=== PATIENT | female | born 2000 ===

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

== ENCOUNTER 2024-04-26 10:39 | Emergency (ER) | payer OTHER, SELFPAY ==
--- NOTE | ~2024-04-26 | US_ITS ---
EXAMINATION: US PELVIS CLINICAL INFORMATION: Left lower quadrant and pelvic pain COMPARISON: 12/15/[address] TECHNIQUE: Ultrasound of the pelvis is performed using both transabdominal and transvaginal transducers along with Doppler. Transvaginal imaging is performed due to inadequate visualization transabdominally. FINDINGS: Uterus: The uterus is anteverted and measures 7.9 x 2.8 x 4.9. The double wall endometrial thickness is 7 mm. The uterus is smooth in contour and has normal myometrial echogenicity. No visible fibroid. Adnexa: Both ovaries are visualized. There is normal color flow to the adnexa. There is no ovarian torsion. There is no pelvic ascites or fluid collection. Right ovary measures 3.8 x 2.6 x 2.2 cm. Volume is 11.4 mL. Left ovary measures 5.7 x 3.5 x 4.5 cm. Volume is 47 mL. Complex 3.4 x 2.8 x 2.5 cm corpus luteum cyst is seen. Small amount of free pelvic fluid. US/US pelvic and transvaginal IMPRESSION: 1. 3.4 cm left corpus luteum cyst. 2. Small amount of free pelvic fluid. Electronically signed by: Trinity Sandoval MD 04/26/2024 02:04 PM BRAULIO
[2024-04-26 11:47] VITALS: BP 142/67; PULSE 67; RESP 16; TEMP 36.6; O2SAT 99; BMI 23.2
--- NOTE | 2024-04-26 12:05 | ED.GENADULT ---
HPI - General Adult General Chief complaint: Abdominal Pain Stated complaint: sharp abd pain Time Seen by Provider: 04/26/24 23:37 Source: patient and other (Significant other: Bem) Mode of arrival: ambulatory History of Present Illness ED Provider: Dr. Deejay Kaminski HPI narrative: 23-year-old female with no significant past medical or surgical history LMP 03/30/2024 who presents emergency department for evaluation of 2 weeks of lower abdominal pain worse in the last 2 days. She states that initially the pain felt like a gas pain and was intermittent. Over the last 2-3 days the pain has been constant but waxing and waning intensity. She points to her left pelvic area when asked to localize the pain. She states the pain today is 8/10 and it was 10/10 at its worst. Patient denied fever, chills, nausea. She did have occasional vomiting. She denied diarrhea. She denied frequency urgency or dysuria. She denied vaginal discharge. She states her last menstrual period on 03/30/2024 was normal. This is a 1st episode of this type of pain. Related Data Previous Rx's ?Medication ?Instructions ?Recorded cephalexin 500 mg capsule 500 mg PO QID 5 days #20 caps 12/15/21 polyethylene glycol 3350 17 17 g PO DAILY #119 grams 12/15/21 gram/dose oral powder (Miralax) Allergies Allergy/AdvReac Type Severity Reaction Status Date / Time No Known Allergies Allergy Verified 04/26/24 11:48 Review of Systems Review of Systems: Yes all other systems are reviewed and are negative [facility] Past Medical History [facility] Narrative: Social history: She denies tobacco and drug use. She occasionally drinks alcohol but has not had any alcohol to drink in over a month. Social History Social History Advance Directives: No Advance Directives Information Provided: No Do you have a plan to hurt others: No Plan Physical Exam ED Vital Signs: Vital Signs - 24 hr 04/26/24 11:47 04/26/24 21:37 04/26/24 23:25 Temperature 97.8 F 98.2 F 98.4 F Pulse Rate 67 122 H 77 Respiratory Rate 16 16 16 Blood Pressure 142/67 H 146/99 H 117/71 Pulse Oximetry 99 98 98 Oxygen Delivery Method Room Air Room Air Room Air BMI result Body Mass Index 23.2 Vital signs initially revealed an elevated blood pressure but repeat blood pressure was 117/71. Vital signs otherwise unremarkable. Exam: General: Awake, alert in no distress Head: Normocephalic, atraumatic EENT: PERRL, Lids normal, sclera normal, conjunctiva normal, nose normal , ears normal, throat without erythema or exudates Neck: Supple, no adenopathy Lung: breath sounds symmetric, no wheezing, rales or rhonchi Chest: symmetric movement, nontender Heart: regular rate and rhythm, normal S1, S2 no murmurs or rubs Abdomen: soft, mild periumbilical tenderness, mild to moderate left pelvic tenderness, nondistended, normal bowel sounds Back: no vertebral tenderness, no CVAT Extremities: no deformities, moves all extremities symmetrically Neuro: Awake, alert, oriented, normal speech, cranial nerves intact, moves all extremities symmetrically Psych: Pleasant, cooperative Course Course Course Narrative: This is a rapid medical exam performed by Farzana Jones NP: Additional HPI, ROS, PE not included below will be deferred to primary provider. Patient is a 23-year-old female presenting with complaint of LLQ abdominal and pelvis pain, worse with coughing, nausea without vomiting. Plan: labs, UA, u/s Medications Administered Discontinued Medications Generic Name Dose Route Start Last Admin Trade Name Freq PRN Reason Stop Dose Admin Acetaminophen 975 mg 04/26/24 21:40 04/26/24 21:42 Acetaminophen 325 Mg Tablet PO 04/26/24 21:41 975 mg ONCE ONE Administration Medical Decision Making Medical Decision Making [facility] Narrative: 23-year-old female with no significant past medical or surgical history LMP 03/30/2024 who presents emergency department for evaluation of 2 weeks of lower abdominal pain worse in the last 2 days. Patient's pain initially felt like a gas pain and is now more localized to the left lower quadrant/pelvic area and is 8/10 at the time my evaluation. Vital signs were unremarkable. Exam did reveal left pelvic tenderness otherwise unremarkable. Differential diagnosis: ?Includes but is not limited to pancreatitis, appendicitis, pelvic inflammatory disease, ovarian cyst, ovarian torsion, electrolyte abnormalities, anemia, related pain Course: 00:15 My interpretation patient's laboratory evaluation as follows: Urine test was negative. Urinalysis was negative. CBC and CMP were normal. Pelvic Duplex ultrasound revealed a 3.4 cm left corpus luteal cyst with a small amount of free fluid with no evidence for torsion at this time. This time I do not have a clear etiology for the patient's pain it is possible the patient may have an ovarian cyst that partially ruptured/leak causing her pain I did discuss this with her. Given the size of the corpus luteal cyst, the patient will need follow-up with our gynecology group for further evaluation and I did discuss this with her. Patient was advised to take ibuprofen 400 mg 3 times a day for the next 3-4 days then as needed 3 times a day for pain. She was also advised to take Tylenol for pain. She was given printed and verbal instructions and discharged home. Admission/Observation Consideration of admission/observation: Escalation of care including admission/observation considered Lab Data MDM Lab Attestation statement: I reviewed the patient's lab results. 04/26/24 12:21 04/26/24 12:21 Labs: Lab Results 04/26/24 Range/Units 12:21 WBC 7.0 (4.8-10.8) X10*3/uL RBC 4.18 L (4.20-5.50) X10*6/uL Hgb 12.5 (12.0-16.0) g/dl Hct 38.1 (37.0-47.0) % MCV 91.1 (80.0-98.0) fL MCH 29.9 (27.0-33.0) pg MCHC 32.8 (31.0-35.0) g/dl RDW 14.4 (11.0-16.0) % Plt Count 279 (160-400) X10*3/uL MPV 10.5 (9.4-12.3) fL Immature Gran % (Auto) 0.1 (0.0-0.4) % Neut % (Auto) 53.5 (45-73) % Lymph % (Auto) 35.8 (20-40) % [place] % (Auto) 8.3 (2-11) % Eos % (Auto) 1.6 (0-4) % Baso % (Auto) 0.7 (0-2) % Lymph # (Auto) 2.5 (1.2-4.9) X10*3/uL [place] # (Auto) 0.6 (0.1-1.2) X10*3/uL Eos # (Auto) 0.1 (0.0-0.4) X10*3/uL Baso # (Auto) 0.1 (0.0-0.2) X10*3/uL Abs Immat Gran (auto) 0.01 (0.00-0.03) X10*3/uL Absolute Neuts (auto) 3.8 (2.0-8.3) x10*3/uL Absolute Nucleated RBC 0.000 (0.0-0.012) X10*3/uL Nucleated RBC % (auto) 0.0 (0.0-0.2) /100WBC Sodium 139 (135-145) mmol/L Potassium 4.3 (3.3-5.1) mmol/L Chloride 108 (96-108) mmol/L Carbon Dioxide 23 (22-29) mmol/L Anion Gap 12 (12-20) BUN 10 (9-16) mg/dL Creatinine 0.72 (0.5-1.4) mg/dL Estim Creat Clear Calc 102.2 Estimated GFR > 60 Random Glucose 82 (60-115) mg/dL Calcium 11.1 H D (8.4-10.2) mg/dL Total Bilirubin 0.5 (0.0-1.0) mg/dL AST 26 (5-31) U/L ALT 17 (0-31) U/L Alkaline Phosphatase 48 (39-117) U/L Total Protein 7.4 (6.5-8.0) g/dL Albumin 4.3 (3.5-5.0) g/dL Urine Color Yellow Urine Appearance Clear Urine pH 5.5 (5.0-9.0) Ur Specific [place] >= 1.030 H (1.005-1.025) Urine Protein Negative (Neg-Trace) mg/dL Urine Glucose (UA) Negative (Negative) mg/dL Urine Ketones Negative (Negative) mg/dL Urine Blood Negative (Negative) Urine Nitrite Negative (Negative) Ur Leukocyte Esterase Negative (Negative) Urine Test NEGATIVE (NEGATIVE) Radiology Impression Discussion of test interpretation with radiology: I have reviewed the radiologist's reading. Radiologist Impression: US pelvic and transvaginal IMPRESSION: 1. 3.4 cm left corpus luteum cyst. 2. Small amount of free pelvic fluid. Electronically signed by: Trinity Sandoval MD 04/26/2024 02:04 PM EST RP Independent Historian Clinical information obtained from an independent historian. History obtained from or confirmed by: Other (Significant other) Discharge Plan Discharge Clinical Impression: Cyst of left ovary, Pelvic pain Patient Disposition: Home, Self-Care Instructions: Ovarian Cyst (ED) Additional Instructions: You had a complete blood count, comprehensive metabolic panel which were normal. Your urine test was negative. Your urinalysis was negative for urinary tract infection. The ultrasound revealed a 3.4 cm left ovarian cyst with some free fluid in your pelvis. At this time I believe that your pain may be related to this ovarian cyst in the ovarian cyst may be leaking which may be causing your pain. This is usually treated with pain medications and following the cyst with ultrasound. Ovarian cysts seldom require operations. Take ibuprofen 200 mg pills, 2 pills every 6 hours (3 times a day) for 4 days then every 6 hours as needed for pain . Take Tylenol (acetaminophen) 500 mg pills, 2 pills every 6 hours as needed for pain. Follow-up with our on-call candy cutter machine, Dr. Sanchez. Call his office tomorrow to make a follow-up appointment within 1-2 weeks. Please return to the emergency department if your symptoms get worse or if you develop any symptoms that are concerning to you. Please see the school note S pelvic and transvaginal IMPRESSION: 1. 3.4 cm left corpus luteum cyst. 2. Small amount of free pelvic fluid. Electronically signed by: Trinity Sandoval MD 04/26/2024 02:04 PM EST RP Prescriptions: No Action cephalexin 500 mg capsule 500 mg PO QID 5 Days Qty: 20 0RF polyethylene glycol 3350 [Miralax] 17 gram/dose powder 17 g PO DAILY Qty: 119 0RF Rx Instructions: Take 1 tbsp and a cup of water once a day for the next week Referrals: Eleazar Sanchez MD [Physician] - 2 weeks (Left pelvic pain, 3.4 cm left corpus luteum/ovarian cyst with small amount of free fluid in the pelvis.) Stand Alone Forms: Work/School Release Print Language: Bengali
[2024-04-26 12:30] LABS: MANUAL DIFF FLAG NO
[2024-04-26 12:33] LABS: Appearance Urine Clear; Color Urine Yellow; Glucose Urine UA Negative (Negative); Leukocyte Esterase Urine Negative (Negative); Nitrite Urine Negative (Negative); PH 5.5 (5.0-9.0); Specific Gravity - Urine >= 1.030 (1.005-1.025); Urine Blood Negative (Negative); Urine Ketones Negative (Negative); Urine Protein Negative (Neg-Trace)
[2024-04-26 12:35] LABS: Basophils Absolute Auto 0.1 X10*3/uL (0.0-0.2); Basophils Percent Auto 0.7 % (0-2); Eosinophils Absolute Auto 0.1 X10*3/uL (0.0-0.4); Eosinophils Percent Auto 1.6 % (0-4); Hematocrit 38.1 % (37.0-47.0); Hemoglobin 12.5 g/dl (12.0-16.0); Imm Gran Abs Auto 0.01 X10*3/uL (0.00-0.03); Imm Gran Pct Auto 0.1 % (0.0-0.4); Lymphocytes Absolute Auto 2.5 X10*3/uL (1.2-4.9); Lymphocytes Percent Auto 35.8 % (20-40); Mean Corpuscular HGB Conc 32.8 g/dl (31.0-35.0); Mean Corpuscular Hemoglobin 29.9 pg (27.0-33.0); Mean Corpuscular Volume 91.1 fL (80.0-98.0); Mean Platelet Volume 10.5 fL (9.4-12.3); Monocytes Absolute Auto 0.6 X10*3/uL (0.1-1.2); Monocytes Percent Auto 8.3 % (2-11); Neutrophils Absolute Auto 3.8 x10*3/uL (2.0-8.3); Neutrophils Percent Auto 53.5 % (45-73); Platelet Count 279 X10*3/uL (160-400); Red Blood Count 4.18 X10*6/uL (4.20-5.50); Red Cell Distribution Width 14.4 % (11.0-16.0); UPreg QC Valid YES; Urine Pregnancy NEGATIVE (NEGATIVE)
[2024-04-26 12:49] LABS: Alanine Aminotransferase 17 U/L (0-31); Albumin Level 4.3 g/dL (3.5-5.0); Alkaline Phosphatase 48 U/L (39-117); Anion Gap 12 (12-20); Aspartate Amino Transferase 26 U/L (5-31); Bilirubin Total 0.5 mg/dL (0.0-1.0); Blood Urea Nitrogen 10 mg/dL (9-16); Calcium 11.1 mg/dL (8.4-10.2); Carbon Dioxide 23 mmol/L (22-29); Chloride 108 mmol/L (96-108); Creatinine Clr Calc Pharmacy 102.2; Estimated Glomerular Filt Rate > 60; Glucose Random 82 mg/dL (60-115); Potassium 4.3 mmol/L (3.3-5.1); Sodium 139 mmol/L (135-145); Total Protein 7.4 g/dL (6.5-8.0)
[2024-04-26 21:37] VITALS: BP 146/99; PULSE 122; RESP 16; TEMP 36.8; O2SAT 98
[2024-04-26] MEDS: Acetaminophen 325 MG TABLET 975 MG PO (21:42)
[2024-04-26 23:25] VITALS: BP 117/71; PULSE 77; RESP 16; TEMP 36.9; O2SAT 98
[2024-04-27] MEDS: Ibuprofen 400 MG TABLET PO (00:20)
[2024-04-27 00:22] VITALS: BP 117/71; PULSE 77; RESP 16; TEMP 36.9; O2SAT 98
== END 2024-04-27 00:22 | disposition home or self-care (01) ==
PROVIDERS: Emergency Provider Emergency Medicine Emergency Medical Services
DX: N83.202 Unspecified ovarian cyst, left side (principal); R10.2 Pelvic and perineal pain; R10.30 Lower abdominal pain, unspecified
CPT/HCPCS: 36415; 76830; 76856; 80053; 81003; 81025; 85025; 99283; 99284

== ENCOUNTER 2024-05-03 10:39 | Outpatient (AMB) | payer OTHER, SELFPAY ==
[2024-05-03 10:44] VITALS: BP 102/64; BMI 23.3
--- NOTE | 2024-05-03 10:44 | MHC.OFFVIS ---
Vital Signs 05/03/24 10:44 Height 5 ft 3 in Weight 131 lb 6 oz BMI 23.3 BP 102/64 Blood Pressure Location Lt brachial Position Sitting Intake Visit Reasons: ER follow up, room 3 Intake Note: Still having intermittent pain, not as prominent as before. LLQ Inspector And Sorter Required: No Privacy Officer: Privacy Officer Present Allergies No Known Allergies Allergy (Verified 04/26/24 11:48) Is last menstrual period known: Yes Last menstrual period: 03/30/24 Post menopausal: No Patient : No HPI Comments Details: Patient is here today for a new patient consult and follow up ER visit on on 04/26/2024, reported left pelvic pain and was diagnosed with an 3.4 cm corpus luteum cyst. While at the ED, pain level was 8/10, and reports the pain was much better the following day. notably present with intimacy or if she presses on her abdominal region. She is not on control has stopped use due to history of emotional mood changes, anger. She occasionally uses condoms. LMP 03/30/2024, currently late for menses, UPT is negative today. Cycle history normally every 28 days lasting 5 days. She has not had a pelvic exam before and declines examination today. [facility] Medical History (Updated 05/03/24 @ 13:20 by Julisa Diamond CNM) Ovarian cyst Social History (Updated 05/03/24 @ 10:56 by Virginia Briscoe) Household Members: Family Alcohol intake: current Alcohol intake frequency: holidays/special occasions only Patient Tobacco Use Status: Never used Tobacco Female Reproductive History Menstrual Age of Menarche: 14 Duration of menses: 6-7 days Date of last menstrual period: 03/30/24 control method: none History of STI: No Review of Systems Const All systems reviewed & are unremarkable except as noted in HPI and below Endo Reports no additional complaints Physical Exam Vital Signs: Last Vital Signs BP 102/64 05/03/24 10:44 BMI result Body Mass Index 23.3 Const General: cooperative, healthy appearing and no acute distress Psych Appearance: well kempt Attitude: cooperative Thought process: Normal thought process present Results Reviewed Results Reviewed: [address] [address] Ultrasound Report Signed Patient: Shahid Perdue MR#: [id number] : 2000 Acct:[id number] Age/Sex: 23 / F ADM Date: 04/26/24 Loc: HO.ED Attending Dr: Ordering Physician: Salome Jones NP Date of Service: 04/26/24 Procedure(s): US pelvic and transvaginal Accession Number(s): [id number] cc: REFUGIO DOMÍNGUEZ MD; Salome Jones NP~ EXAMINATION: US PELVIS CLINICAL INFORMATION: Left lower quadrant and pelvic pain COMPARISON: 12/15/[address] TECHNIQUE: Ultrasound of the pelvis is performed using both transabdominal and transvaginal transducers along with Doppler. Transvaginal imaging is performed due to inadequate visualization transabdominally. FINDINGS: Uterus: The uterus is anteverted and measures 7.9 x 2.8 x 4.9. The double wall endometrial thickness is 7 mm. The uterus is smooth in contour and has normal myometrial echogenicity. No visible fibroid. Adnexa: Both ovaries are visualized. There is normal color flow to the adnexa. There is no ovarian torsion. There is no pelvic ascites or fluid collection. Right ovary measures 3.8 x 2.6 x 2.2 cm. Volume is 11.4 mL. Left ovary measures 5.7 x 3.5 x 4.5 cm. Volume is 47 mL. Complex 3.4 x 2.8 x 2.5 cm corpus luteum cyst is seen. Small amount of free pelvic fluid. US/US pelvic and transvaginal IMPRESSION: 1. 3.4 cm left corpus luteum cyst. 2. Small amount of free pelvic fluid. Electronically signed by: Trinity Sandoval MD 04/26/2024 02:04 PM [facility] Dictated By: Trinity Sandoval MD Signed By: <Electronically signed by Trinity Sandoval MD in OV> 04/26/24 1404 DD/ 1313 TD/TT: 04/26/[address] Sales Associate: Assessment & Plan Assessment & Plan (1) Ovarian cyst: Code(s): N83.209 - Unspecified ovarian cyst, unspecified side Category: Medical Qualifiers: Laterality: unspecified laterality Qualified Code(s): N83.209 - Unspecified ovarian cyst, unspecified side Plan Discussed: Complex ovarian cyst corpus luteum cyst. Plan repeat pelvic ultrasound to follow up. Advised to call if there is any increase in pelvic pain, if pain is severe go right to the emergency room for immediate well evaluation. OTC comfort measures. Use of condoms consistently. Pelvic rest if indicated. Consider folic acid, vitamins or multivitamins for the benefit of prevention of neural tube defects if open to . Ultrasound ordered, follow up test results in person. Schedule curriculum development coordinator annual exam. All of her questions and concerns were addressed to the best of my ability and shared decision making. She is agreeable to the plan of care. This note is constructed using voice recognition software. While every effort has been made to ensure accuracy, care partner errors may have been included. Orders: Orders US pelvic and transvaginal 06/20/24 N83.209 - Unspecified ovarian cyst, unspecified side AMB HCG Urine Test Today N83.209 - Unspecified ovarian cyst, unspecified side, Z32.02 - Encounter for test, result negative Coding Level of Care Code New Pt Level 3 (71232) Diagnoses Cyst of ovary, unspecified laterality N83.209 Laterality: unspecified laterality
== END 2024-05-03 11:30 | disposition home or self-care (01) ==
LOC: HO.HWS 10:39
PROVIDERS: Visit Provider Advanced Practice Midwife
DX: N83.209 Unspecified ovarian cyst, unspecified side (principal)
CPT/HCPCS: 99203

== ENCOUNTER → 2024-05-03 10:39 | Outpatient (BNVA) | payer OTHER, SELFPAY | PROVIDERS: Visit Provider Advanced Practice Midwife | DX: N83.202 Unspecified ovarian cyst, left side (principal); Z32.02 Encounter for pregnancy test, result negative | CPT/HCPCS: 99202 ==

== ENCOUNTER 2024-06-22 11:01 | Outpatient (REF) | payer OTHER, SELFPAY ==
--- NOTE | ~2024-06-22 | US_ITS ---
CLINICAL HISTORY: N83.209 - Unspecified ovarian cyst, unspecified side US pelvis transvaginal Comparison: 06/22/2024 Findings: Transvaginal scanning performed. Anteverted uterus is 7.0 cm length. Normal myometrium. No endometrial lesion, 9.0 mm thickness. Right ovary 5.6 x 4.5 x 4.4 cm. Left ovary 4.2 x 1.5 x 2.5 cm. Normal color Doppler of both ovaries. There is a thin-walled heterogeneous right ovarian avascular 4.6 x 4.4 x 3.5 cm cyst, possibly hemorrhagic. Minimal free fluid. IMPRESSION: 1. Possible hemorrhagic right ovarian cyst. Consider short-term follow-up pelvic sonography in 4-6 weeks. This document has been electronically signed by: Zack Britt MD on 06/23/2024 18:14:23
== END 2024-06-22 11:02 | disposition home or self-care (01) ==
LOC: HO.US 11:01
PROVIDERS: Visit Provider Advanced Practice Midwife
DX: N83.209 Unspecified ovarian cyst, unspecified side (principal)
CPT/HCPCS: 76830; 76856

== ENCOUNTER → 2024-06-22 11:06 | Outpatient (BNV) | payer OTHER, SELFPAY | PROVIDERS: Visit Provider Specialist | DX: N83.201 Unspecified ovarian cyst, right side (principal) | CPT/HCPCS: 76830 ==

== ENCOUNTER 2025-01-03 07:54 | Outpatient (AMB) | payer OTHER, SELFPAY ==
--- OUTSIDE RECORDS SUMMARY | 2025-01-03 07:57 | XMS_ITS | Data Portability ---
Author Organization [facility] Address [address] [place] [id number] Care Team Providers Care Mac Artist Name Role Phone MARGRET DESAI Primary Care Provider Assessment No assessment recorded. Plan of Treatment Reminders Order Date Submit Date Provider Last Modified By Organization Details Last Modified Time Details Appointments None recorded. Lab rapid strep group A, throat 2022 023 skealy2 [facility], [address] [place] [address], [id number], 14:11:15 streptococc us group A, culture, throat 2022 023 BANGOR [facility], [address] [place] [address], [place], [address], 08:06:57 Referral None recorded. Procedures None recorded. Surgeries None recorded. Imaging None recorded. Medication Orders None recorded. Patient TargetsNo targets recorded. Patient Instructions Encounter Date Encounter Id Patient Instructions Last Modified By Organization Details Last Modified Time 12/04/2022 [id number] sore throat: car e instructions [email or web address] Not available 12/04/2022 14:11:15 Reason for Referral None Reported. Results Created Date Observation Date Name Description Value Unit Range Abnormal Flag Note LastModifiedBy Organization Detail LastModifiedTime 12/05/19 23 12/07/2022 BETA STREP GP A CULTU RE beta strep gp A culture NEGATI VE Refer ence Range : Negat kelvin Not Available [facility] ([facility]) [address] [facility], [place], [address], 12/07/2022 08:06:57 12/05/1912/04/2022 rapid strep group A, throa t Unknown Analyte Normal = Negati ve Not Available [address], [address], 12/04/2022 13:36:38 12/05/19 23 12/04/2022 rapid strep group A, throa t Unknown Analyte negati ve Not Available [address], [address], 12/04/2022 13:36:38 Result Notes None recorded. Problems No Known Problems Medical Equipment None Reported. Allergies No known drug allergies Medications Name Sig Start Date Stop Date Status Note LastModified by Organization Details LastModified Time amoxicillin 875 mg tablet 12/04 completed Not Available Not Available Not Available cephalexin 500 mg capsule TAKE 1 CAPSULE BY MOUTH FOUR TIMES DAILY FOR 5 DAYS 12/04 completed Not Available Not Available Not Available sertraline 25 mg tablet active Not Available Not Available Not Available polyethylen e glycol 3350 17 gram/dose oral powder MIX 17 GRAMS WITH 8 OUNCES OF WATER AND DRINK DAILY 12/04 completed Not Available Not Available Not Available Vienva 0.1 mg-20 mcg tablet Take 1 tablet every day by oral route. active Not Available Not Available No t Available Flowflex COVID-19 Antigen Home Test kit USE DIRECTED 12/04 completed Not Available Not Available Not Available Vitals Date Recorded Body height Body mass index (BMI) [Percentile] Per age and sex Body mass index (BMI) Body weight Respiratory rate Oxygen saturation Oxygen saturation in Arterial blood by Pulse oximetry Heart rate Body temperature Systolic And Diastolic Provider Name and Address Organization Details Last Updated DateTime 3 161.29 cm 51 % 21.8 kg/m2 83746.0 5 g 18 /min 96 % 96 % 123 /min 98.9 [degF] 116/77 mm[Hg] Edilia BUSTAMANTE - [facility] 3 13:39:15 Social History Question Answer Notes LastModified by Organization D etails LastModified Time Have You Recently Traveled Abroad? No Information not available 12/04/2022 Sex: Unknown Functional Status Question Answer Note LastModified by Organizat ion Details LastModified Time Do you use any illicit or recreational drugs? No Information not available 12/04/2022 Do you or have you ever used any other forms of tobacco or nicotine? No Information not available 12/04/2022 What is your level of alcohol consumption? None Information not available 12/04/2022 Mental Status None recorded. Family History Relationship Description Onset Age of this Age Resolved Age Notes LastModified by Organization Details LastModified Time Father No current problems or disability [email or web address] Not available 12/04 13:37:52 Mother No current problems or disability [email or web address] Not available 12/04 13:37:52 Medical History No medical history recorded. Gynecological History Statement/Question Response Date of LMP 11/20/2022 Is there any chance of ? No Obstetrics History GPAL:G 0 P 0 0 0 0 Immunizations Vaccine Type Date Status Note Provider Nam e and Address Organization Details Recorded Time HPV9 8 completed Edilia Monfette null, [place] - [facility] 12/04/2022 13:36:59 Influenza, MDCK, quadrivalent, PF 0 completed Edilia Monfette null, [place] - [facility] 12/04/2022 13:36:59 COVID-19, mRNA, LNP-S, PF, 30 mcg/0.3 mL dose 1 completed Edilia Monfette null, [place] - [facility] 12/04/2022 13:36:59 COVID-19, mRNA, LNP-S, PF, 30 mcg/0.3 mL dose 1 completed Edilia Monfette null, [place] - [facility] 12/04/2022 13:36:59 Hep A, adult 2 completed Edilia Monfette null, [place] - [facility] 12/04/2022 13:36:59 Hep A, ped/adol, 2 dose 1 completed Edilia Monfette null, [place] - [facility] 12/04/2022 13:36:59 meningococcal MCV4P 0 completed Edilia Kramer null, [place] - [facility] 12/04/2022 13:36:59 Influenza, split virus, quadrivalent, PF 2 completed Edilia Kramer null, [place] - [facility] 12/04/2022 13:36:59 Influenza, split virus, quadrivalent, PF 1 completed Edilia Kramer null, [place] - [facility] 12/04/2022 13:37:00 Past Encounters Encounter ID Performer Location Encounter Start Date Encounter Closed Date Diagnosis/Indication Diagnosis SNOMED-CT Code Diagnosis ICD10 Code Diagnosis Note [id number] [facility] [address] [address] 06/30/2021 17:23:09 06/30/2021 18:52:37 [id number] Ronit Bennett [place] [address] [address] 12/04/2022 12:49:11 12/04/2022 14:38:54 Viral pharyngitis 9716760 J02.8 Use over the counter medication s for your sore throat. Basic lozenges (cough drops) or lozenges with an anesthetic (numbing agent) can be used as needed for quick results; look for the active ingredient , benzocaine , for numbing lozenges (like Cepacol Extra or Chlorasept ic Max).Sore throat pain can also be reduced by taking regular doses of acetaminop hen (tylenol) or ibuprofen (Advil). Please consult our office promptly if you develop any of the following symptoms: 1. A fever of at least 101 F or 38.4 C2. Throat pain that is severe or does not start to improve within 5 to 7 days Call for an ambulance or go to the emergency room if you:1. Have trouble breathing2 . Cannot control your saliva (drooling) due to difficulty swallowing 3. Have swelling of the neck or tongue4. Cannot move your neck or have trouble opening your mouth Health Concerns Section Related Observation LastModified by Organization Detai ls LastModified Time None Recorded Concern Status LastModified by Organization Details LastModified Time None Recorded Advance Directives Directive None Recorded Payers Insurance Date Sequence Insurance Name Policy Number Policy Mcdonald Covered Member ID Mcdonadl Member ID Guarantor Name 12/04/2022 1 [facility] [id number] Shahid Perdue [id number] Shahid Perdue 12/04/2022 1 [facility] TYPE I (HMO) [id number] Shahid Perdue [id number] Shahid Perdue Notes Date Note Type Note Provider Name and Address Organization Details Recorded Time 12/04/2022 text/html Sore throatRepor anjelica bypatient.Location: hroat Severity:moderate Quality:sharp; hurts to swallow Onset/Timin days Associated Symptoms:no cough; no sputum production; no shortness of breath; no wheezing; no sinus pain; no vomiting; no nausea; No hoarseness Ronit Bennett [facility] [address] [facility] [place], [address], [place] - [facility] 12/04/2022 18:30:49 OBGyn Episode No OBEpisode recorded.
--- OUTSIDE RECORDS SUMMARY | 2025-01-03 07:57 | XMS_ITS | Encounter Summary ---
Author Organization [facility] Address [address] [place] [address] Phone Care Team Providers Care Training And Quality Manager Name Role Phone Nikky Stein MD Primary Care Provider [phone] Encounter Details Date Type Department Care Team (Late st Contact Info) Description 05/03/2010 Nurse Only [address] [address] Social History Tobacco Use Types Packs/Day Years Used Date Smoking Tobacco: Never Assessed Comments Unknown Sex and Gender Information Value Date Recorded Sex Assigned at Not on file Legal Sex Female 5:09 PM EST Gender Identity Female 06/29/2020 3:16 PM EST Sexual Orientation Not on file documented as of this encounter Nursing Notes * UNKNOWN, HISTORICAL - 05/03/2010 4:08 PM EST Shahid Perdue. 2000 NURSE NOTE/VERBAL ORDERS Office/Outpatient Visit Visit Date: May 03, 2010 04:08 pm Provider: Kathy Marshall LPN (Human Geography Instructor: Penny Parr MD) Location: [facility]. ECTIVE: CC: She is here for the Flu Clinic. HPI: No known chronic health conditions. Fever or illness is not present today. No trouble breathing or hives after eating eggs She has not had a reaction to the flu vaccine or other immunization. Flu vaccine VIS was given today.(interim 01/22/10) There were no questions or concerns voiced at today's visit. Allergies: Last Reviewed on 03/21/2010 5:19:48 PM by Val Venegas No Known Drug Allergies. Current Medications: Albuterol HFA 90mcg/1actuation Oral Inhaler Inhale 2 puff(s) by mouth q 4 to 6 hr OBJECTIVE: Exams: GENERAL APPEARANCE: Alert, active, looks well, mood appropriate ASSESSMENT: V04.81 Flu Clinic ORDERS: Procedures Ordered: Influenza virus vaccine, split virus, preservative free, > 3 years, for intramuscular use Immunization administration (includes percutaneous, intradermal, subcutaneous or intramuscular injec PLAN: Flu Clinic Influenza vaccine > 3 yr (Preservative Free) given No contraindications noted for flu vaccines. Tolerated well, left office in good condition. Orders: Influenza virus vaccine, split virus, preservative free, > 3 years, for intramuscular use Immunization administration (includes percutaneous, intradermal, subcutaneous or intramuscular injec CHARGE CAPTURE: Primary Diagnosis: V0481 Flu Clinic Orders: [id number] Influenza virus vaccine, split virus, preservative free, > 3 years, for intramuscular use [id number] Immunization administration (includes percutaneous, intradermal, subcutaneous or intramuscular injec documented in this encounter Plan of Treatment Not on file documented as of this encounter Visit Diagnoses Not on filedocumented in this encounter Care Teams Training And Quality Manager Relationship Specialty Start Date End Date Nikky Stein MD [address] [place] [address] PCP - General Pediatrics 07/31/20 03/18/23 documented as of this encounter
[2025-01-03 08:04] VITALS: BP 118/80; PULSE 63; TEMP 36.2; O2SAT 99; BMI 22.7
--- NOTE | 2025-01-03 08:04 | MHC.PC.OV ---
Vital Signs 01/03/25 08:04 Height 5 ft 3 in Weight 128 lb 2 oz BMI 22.7 BP 118/80 Blood Pressure Location Lt brachial Position Sitting Pulse 63 Pulse Source Pulse Oximeter Temp 97.1 F Temp Source Temporal Artery Scan Pulse Oximetry (%) 99 Oxygen Delivery Method Room Air Intake Visit Reasons: office visit,[employer] Allergies No Known Allergies Allergy (Verified 01/03/25 08:08) Medication List - Last Reviewed 01/03/25 by Danielle Benitez CMA norethindrone-e.estradiol-iron 1 mg-10 mcg (24)/10 mcg (2) (Lo Loestrin Fe) 1 tab PO DAILY Tobacco use date assessed: 01/03/25 Dental Screening Dental Screen Date: 01/03/25 Did you have a dental visit in the last 12 months?: No Did you have a dental problem in the last 6 months where you did not have access to dental care?: No Was dental information given to patient?: Patient has dentist HPI office visit,[employer] HPI Details 24-year-old female coming to the office with the 1st time. Presenting for a wellness visit and management of depression and anxiety. Depression and anxiety have been ongoing issues, with a history of medication use, specifically sertraline, which was discontinued due to side effects such as agitation and emotional numbness. The patient expressed interest in trying a different SSRI, specifically escitalopram, due to previous adverse effects with sertraline. A referral for counseling was agreed upon to address mental health concerns. The patient has a history of an ovarian cyst on the right side, which was identified during an emergency room visit due to significant pain. The patient reports knee pain, particularly when bent for extended periods, a condition involving knee tightness and muscular stiffness. eye doctor: [facility] pap smear: [place] [facility] [place] [facility] Medical History Ovarian cyst Surgical History No pertinent past surgical history Family History Mother Hypertension Multiple sclerosis Social History Household Members: Family Housing: House Alcohol intake: current Alcohol intake frequency: holidays/special occasions only Patient Tobacco Use Status: Never used Tobacco e-Cigarette/Vaping Use: Never Used Substance Use Type: Marijuana service: No Current occupational status: employed Current occupation: [employer] - [employer] Cognitive needs: No Hearing needs: No Vision needs: Yes Female Reproductive History Menstrual Age of Menarche: 14 control method: pills Total pregnancies: 1 Ab induced: 1 History of abnormal pap smear: No History of abnormal mammogram: No Questionnaire PHQ-9 Over the last 2 weeks, how often have you been bothered by any of the following problems? 1. Little interest or pleasure in doing things: more than half the days 2. Feeling down, depressed, or hopeless: several days 3. Trouble falling or staying asleep, or sleeping too much: nearly every day 4. Feeling tired or having little energy: nearly every day 5. Poor appetite or overeating: not at all 6. Feeling bad about yourself - or that you are a failure or have let yourself or your family down: several days 7. Trouble concentrating on things, such as reading the newspaper or watching television: not at all 8. Moving or speaking so slowly that other people could have noticed. Or the opposite - being so fidgety or restless that you have been moving around a lot more than usual: not at all 9. Thoughts that you would be better off or of hurting yourself in some way: not at all Total score: 10 Depression Screening Interpretation: Positive Depression Screening Follow-up: Existing condition and New Medication prescribed Depression Screening Done: Yes 11933 - PHQ-9 Billing: Yes Source: Developed by Drs. Dinesh Fleming, Odalys Sainz, Jose Apodaca and colleagues, with an educational angie from [employer]. Thrive Questionnaire Date Thrive assessed: 12/27/24 I am a: Patient What is your living situation today?: I have a steady place to live Within the past 12 months, did the food you bought not last and you didn't have the money to get more?: Never true Within the past 12 months, did you worry whether your food would run out before you got money to buy more?: Never true Do you have trouble paying for medicines?: No Do you have trouble getting transportation to medical appointments?: No Do you have trouble paying your heating and electricity bill?: No Do you have trouble taking care of your child, family member or friend?: No Do you have trouble with day-to-day activities such as bathing, preparing meals, shopping, managing finances, etc.?: No Are you currently unemployed and looking for a job?: No Are you interested in more education?: Yes THRIVE Score: 0 AUDIT C Alcohol Use Questionnaire (AUDIT-C) 1. How often do you have a drink containing alcohol?: Monthly or less 2. How many drinks containing alcohol do you have on a typical day when you are drinking?: 1 or 2 3. How often do you have six or more drinks on one occasion?: Less than monthly Total Score: 2 DALIA-7 AMB Questionnaire DALIA-7 Date DALIA - 7 assessed: 01/03/25 Feeling nervous, anxious, or on edge: 1 = Several days Not being able to stop or control worryin = Several days Worrying too much about different things: 1 = Several days Trouble relaxin = More than half the days Being so restless that it is hard to sit still: 0 = Not at all Becoming easily annoyed or irritable: 1 = Several days Feeling afraid as if something awful might happen: 0 = Not at all Total DALIA-7 score (0-4 normal; 5-9 mild; 10-14 moderate; 15-21 severe): 6 Source: Developed by Drs. Dinesh Fleming, Odalys Sainz, Jose Apodaca and colleagues, with an educational angie from [employer]. DALIA-7 Assessment Billing DALIA-7 Assessment Tool: DALIA-7 Assessment 29849 Review of Systems Const Denies body aches, Denies chills, Denies fever(s), Denies headache(s) and Denies poor appetite Eyes Reports no additional complaints and Reports requires corrective lenses ENT Reports Normal hearing present, Denies dysphagia, Denies dizziness, Denies headache(s) and Denies odynophagia Card Denies chest pain, Denies syncope, Denies edema, Denies irregular heart rhythm, Denies lightheadedness and Denies dyspnea Resp Denies cough and Denies dyspnea GI Denies abdominal pain, Denies constipation, Denies dysphagia, Denies diarrhea, Denies nausea, Denies odynophagia and Denies vomiting Reports no additional complaints Musc Reports no additional complaints and Denies abnormal gait Skin/Breast Reports system reviewed and no additional complaints, except as documented Neuro Reports Normal hearing present, Denies abnormal gait, Denies dizziness, Denies syncope and Denies headache(s) Psych Reports no additional complaints Physical exam (Primary Care) Vital Signs: Last Vital Signs Temp 97.1 F 01/03/25 08:04 Pulse 63 01/03/25 08:04 BP 118/80 01/03/25 08:04 Pulse Ox 99 01/03/25 08:04 Oxygen Delivery Method Room Air 01/03/25 08:04 BMI result Body Mass Index 22.7 Tobacco/Smoking Status: Tobacco use Status Tobacco use date assessed 01/03/25 01/03/25 08:08 Patient Tobacco Use Status Never used Tobacco 01/03/25 08:08 e-Cigarette/Vaping Use Never Used 01/03/25 08:08 PHQ-9: PHQ-9 Score PHQ-9: Total score 10 01/03/25 08:11 Depression Screening Interpretation: Positive Depression Screening Follow-up: Existing condition and New Medication prescribed Thrive Assessment: Date of Thrive Assessment Date Thrive assessed 12/27/24 01/03/25 08:08 Const General: cooperative, healthy appearing, comfortable and no acute distress Orientation/consciousness: patient oriented x3 HENMT Head: Yes normocephalic Ears: hearing grossly normal bilaterally General nose exam: Normal external nose present Face and sinus: Yes normal facial exam and Yes sinuses nontender Mouth: Normal oral and palatal mucosa present and tongue normal Throat: Yes posterior oropharynx normal Eyes General: appearance normal, both eyes and all related structures Conjunctivae: conjunctivae normal Pupils: Equal, round and reactive pupils present EOM: EOMs intact bilaterally and No Nystagmus present Neck Neck: Yes full ROM and Yes no lymphadenopathy Chest Chest palpation & inspection: normal inspection of the chest Resp Effort & Inspection: normal respiratory effort Auscultation: clear to auscultation bilaterally, no crackles, no rales, no rhonchi and no wheezes Cardio Rate: regular rate Rhythm: regular rhythm Peripheral pulses: radial pulses present and dorsalis pedis present GI Inspection: Yes normal to inspection and No Abdominal wall edema Palpation (GI): Soft to palpation, not firm and nontender Auscultation: normal bowel sounds Rectal Exam - Female: deferred General: Yes no CVA tenderness Back/Spine/Pelvis Back: no CVA tenderness Skin General skin exam: no rashes or lesions noted Neuro General: patient oriented x3 Cranial nerves: Yes Equal, round and reactive pupils present, Yes Normal hearing present and No Nystagmus present Gait exam (Neuro): Normal gait present Extrem Other: No tenderness to palpation over bilateral knees - intact strength and sensation of bilateral lower extremities General: Yes normal to inspection, Yes full ROM and No edema Psych Speech and movement: Normal speech and movement present Affect: normal affect Attitude: cooperative Insight: Good insight present (Psych) Judgement: Good judgement present (Psych) Coding Level of Care Code New Pt Prev Care 18-39yr([id number] Diagnoses Annual physical exam Z00.00 Cyst of ovary, unspecified laterality N83.209 Laterality: unspecified laterality Anxiety F41.9 Depression F32.A Right knee pain M25.561 Additional Codes DALIA-7 Assessment Billing - DALIA-7 Assessment Tool: DALIA-7 Assessment 35520 ([id number]) PHQ-9 - 03219 - PHQ-9 Billing: Yes ([id number]) Assessment & Plan Assessment & Plan (1) Annual physical exam: Code(s): Z00.00 - Encounter for general adult medical examination without abnormal findings Category: Medical Plan: Patient is up-to-date on all recommended routine screenings and vaccinations for her age. 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 I ordered for updated blood work. Healthy diet and regular exercise is encouraged. (2) Ovarian cyst: Code(s): N83.209 - Unspecified ovarian cyst, unspecified side Category: Medical Qualifiers: Laterality: unspecified laterality Qualified Code(s): N83.209 - Unspecified ovarian cyst, unspecified side Plan: Continue to follow [place] [facility] [place]. (3) Anxiety: Code(s): F41.9 - Anxiety disorder, unspecified Category: Medical Plan: For anxiety and depression patient was previously on sertraline however she had adverse reaction sits medication and would like to avoid the use of this medication going forward. Plan to start on Lexapro daily for management of anxiety and depression discussed side effects of this medication. Referral was also placed to counseling at patient request. Plan to follow up in 3 months or sooner as needed. (4) Depression: Code(s): F32.A - Depression, unspecified Category: Medical Plan: See above (5) Right knee pain: Code(s): M25.561 - Pain in right knee Category: Medical Plan: Patient complaining of intermittent right knee stiffness and pain primarily after periods of prolonged flexion of the knee. Recommend gentle stretching, massaging the knee and muscle surrounding the knee, heating pads and weight-bearing exercises. I did also recommend physical therapy if the patient should want this going forward referral can be placed. Knee exam normal no indication for x-ray at this time. Plan The patient will begin treatment with escitalopram at a starting dose of 5 mg daily, with the potential to increase to 10 mg if needed after four weeks, depending on her response and side effects. A 90-day supply has been prescribed to facilitate this adjustment. Additionally, a referral for counseling has been made to support her mental health management. The patient is advised to monitor for any side effects and to communicate any concerns via the patient portal or by contacting the office directly. For her knee pain, conservative management with stretching, physical therapy, and muscle strengthening exercises is recommended. The patient is advised to avoid high-impact activities that may exacerbate symptoms and to consider physical therapy if symptoms persist or worsen. Routine blood work has been ordered to screen for thyroid, kidney, liver function, electrolytes, and blood cell counts. These tests are not fasting and can be completed at the patient's convenience. Follow-up will be scheduled in three months to assess the effectiveness of the treatment plan and make any necessary adjustments. This note was constructed using voice recognition software. While every effort has been made to ensure accuracy and photogrammetric stereo compiler, still areas may have been included sometimes these areas may affect the content or meeting of the given symptoms. Total time spent caring for the patient today was 30 minutes. This includes time spent before the visit reviewing the chart, time spent during the visit, and time spent after the visit and documentation. Patient was informed and verbally consented to the use of an ambient scribe for clinic note documentation during this visit. Orders: Orders Comprehensive Met. Panel Today F41.9 - Anxiety disorder, unspecified, N83.209 - Unspecified ovarian cyst, unspecified side Vitamin B12 and Folate Today Z13.21 - Encounter for screening for nutritional disorder TSH reflex Free T4 Today F32.A - Depression, unspecified, Z00.00 - Encounter for general adult medical examination without abnormal findings Free T4 (Free Thyroxine) Today F32.A - Depression, unspecified, Z13.29 - Encounter for screening for other suspected endocrine disorder Complete Blood Count Auto Diff Today Z13.0 - Encounter for screening for diseases of the blood and blood-forming organs and certain disorders involving the immune mechanism Vitamin D 25-OH Total Today Z13.21 - Encounter for screening for nutritional disorder Referrals Counseling Referral F32.A - Depression, unspecified, F41.9 - Anxiety disorder, unspecified Medications: New escitalopram oxalate 5 mg PO DAILY 90 tabs 0RF
== END 2025-01-03 08:40 | disposition home or self-care (01) ==
LOC: HO.HMCH 07:55
DX: Z00.00 Encounter for general adult medical examination without abnormal findings (principal); N83.209 Unspecified ovarian cyst, unspecified side; F41.9 Anxiety disorder, unspecified; F32.A Depression, unspecified; M25.561 Pain in right knee

== ENCOUNTER → 2025-01-03 07:54 | Outpatient (BNVA) | payer OTHER, SELFPAY | DX: Z00.00 Encounter for general adult medical examination without abnormal findings (principal); F41.9 Anxiety disorder, unspecified; F32.A Depression, unspecified; N83.209 Unspecified ovarian cyst, unspecified side; M25.561 Pain in right knee; Z79.899 Other long term (current) drug therapy | CPT/HCPCS: 96127; 99385 ==

== ENCOUNTER 2025-04-11 15:21 | Outpatient (AMB) | payer OTHER, SELFPAY ==
[2025-04-11 15:26] VITALS: BP 112/70; PULSE 87; TEMP 36.3; O2SAT 99; BMI 23.5
--- NOTE | 2025-04-11 15:26 | A.OFFPC_ITS ---
Vital Signs 04/11/25 15:26 Height 5 ft 3 in Weight 132 lb 8 oz BMI 23.5 BP 112/70 Blood Pressure Location Lt brachial Position Sitting Pulse 87 Pulse Source Pulse Oximeter Temp 97.3 F Temp Source Temporal Artery Scan Pulse Oximetry (%) 99 Oxygen Delivery Method Room Air Intake Visit Reasons: f/u depression Allergies No Known Allergies Allergy (Verified 04/11/25 15:40) Medication List - Last Reconciled 04/11/25 by Ryann Benitez PA-C escitalopram oxalate 5 mg PO DAILY norethindrone-e.estradiol-iron 1 mg-10 mcg (24)/10 mcg (2) (Lo Loestrin Fe) 1 tab PO DAILY Tobacco use date assessed: 04/11/25 Dental Screening Dental Screen Date: 04/11/25 Did you have a dental visit in the last 12 months?: No Did you have a dental problem in the last 6 months where you did not have access to dental care?: No Was dental information given to patient?: Patient has dentist HPI f/u depression HPI Details 24 year old female with past medical of anxiety and depression last seen 12/2024 coming in for follow up. Presenting for a follow-up on her escitalopram medication and new-onset headaches. She has been taking escitalopram for three months for anxiety and d epression and feels the current dose is managing her symptoms well. For the past couple of weeks, she has experienced headaches more frequently than her baseline. She describes them as sometimes feeling like a migraine and located in the frontal region of her head, though she has not noticed if they favor one side. She reports developing some congestion and stuffiness since Thursday, which she feels is related to the change in weather. To manage these symptoms, she has been taking Sudafed since Thursday. [facility] Medical History Ovarian cyst Surgical History No pertinent past surgical history Family History Mother Hypertension Multiple sclerosis Social History Household Members: Family Housing: House Alcohol intake: current Alcohol intake frequency: holidays/special occasions only Patient Tobacco Use Status: Never used Tobacco Tobacco use type: Cigarette e-Cigarette/Vaping Use: Never Used Second Hand Smoke Exposure: No Substance Use Type: Marijuana service: No Current occupational status: employed Current occupation: [employer] Analyst - [employer] Cognitive needs: No Hearing needs: No Vision needs: Yes Female Reproductive History Menstrual Age of Menarche: 14 control method: pills Total pregnancies: 1 Ab induced: 1 History of abnormal pap smear: No History of abnormal mammogram: No Questionnaire PHQ-9 Over the last 2 weeks, how often have you been bothered by any of the following problems? 1. Little interest or pleasure in doing things: several days 2. Feeling down, depressed, or hopeless: not at all 3. Trouble falling or staying asleep, or sleeping too much: nearly every day 4. Feeling tired or having little energy: nearly every day 5. Poor appetite or overeating: not at all 6. Feeling bad about yourself - or that you are a failure or have let yourself or your family down: not at all 7. Trouble concentrating on things, such as reading the newspaper or watching television: not at all 8. Moving or speaking so slowly that other people could have noticed. Or the opposite - being so fidgety or restless that you have been moving around a lot more than usual: not at all 9. Thoughts that you would be better off or of hurting yourself in some way: not at all Total score: 7 Depression Screening Interpretation: Positive Depression Screening Follow-up: Existing condition and New Medication prescribed Depression Screening Done: Yes Source: Developed by Drs. Dinesh Fleming, Odalys Sainz, Jose Apodaca and colleagues, with an educational angie from [employer]. Thrive Questionnaire Date Thrive assessed: 12/27/24 I am a: Patient What is your living situation today?: I have a steady place to live Within the past 12 months, did the food you bought not last and you didn't have the money to get more?: Never true Within the past 12 months, did you worry whether your food would run out before you got money to buy more?: Never true Do you have trouble paying for medicines?: No Do you have trouble getting transportation to medical appointments?: No Do you have trouble paying your heating and electricity bill?: No Do you have trouble taking care of your child, family member or friend?: No Do you have trouble with day-to-day activities such as bathing, preparing meals, shopping, managing finances, etc.?: No Are you currently unemployed and looking for a job?: No Are you interested in more education?: Yes Please select the resources that you would like help with: None Currently or been in a relationship where the following occur: No concerns reported THRIVE Score: 0 AUDIT C Alcohol Use Questionnaire (AUDIT-C) 1. How often do you have a drink containing alcohol?: Monthly or less 2. How many drinks containing alcohol do you have on a typical day when you are drinking?: 1 or 2 3. How often do you have six or more drinks on one occasion?: Less than monthly Total Score: 2 DALIA-7 AMB Questionnaire DALIA-7 Date DALIA - 7 assessed: 01/03/25 Feeling nervous, anxious, or on edge: 1 = Several days Not being able to stop or control worryin = Several days Worrying too much about different things: 1 = Several days Trouble relaxin = More than half the days Being so restless that it is hard to sit still: 0 = Not at all Becoming easily annoyed or irritable: 1 = Several days Feeling afraid as if something awful might happen: 0 = Not at all Total DALIA-7 score (0-4 normal; 5-9 mild; 10-14 moderate; 15-21 severe): 6 Source: Developed by Drs. Dinesh Fleming, Odalys Sainz, Jose Apodaca and colleagues, with an educational angie from [employer]. Review of Systems Const Denies body aches, Denies chills, Denies fever(s), Reports headache(s) and Denies poor appetite Eyes Reports no additional complaints ENT Denies dysphagia, Denies dizziness, Reports headache(s), Denies odynophagia and Reports sinus pain Card Denies chest pain, Denies lightheadedness and Denies dyspnea Resp Denies dyspnea GI Denies abdominal pain, Denies constipation, Denies dysphagia, Denies nausea, Denies odynophagia and Denies vomiting Reports no additional complaints Musc Reports no additional complaints and Denies abnormal gait Skin/Breast Reports system reviewed and no additional complaints, except as documented Neuro Denies abnormal gait, Denies dizziness and Reports headache(s) Psych Reports no additional complaints Physical exam (Primary Care) Vital Signs: Last Vital Signs Temp 97.3 F 04/11/25 15:26 Pulse 87 04/11/25 15:26 BP 112/70 04/11/25 15:26 Pulse Ox 99 04/11/25 15:26 Oxygen Delivery Method Room Air 04/11/25 15:26 BMI result Body Mass Index 23.5 Tobacco/Smoking Status: Tobacco use Status Tobacco use date assessed 04/11/25 04/11/25 15:29 Patient Tobacco Use Status Never used Tobacco 04/11/25 15:27 Tobacco use type Cigarette 04/11/25 15:29 e-Cigarette/Vaping Use Never Used 04/11/25 15:27 PHQ-9: PHQ-9 Score PHQ-9: Total score 7 04/11/25 15:43 Depression Screening Interpretation: Positive Depression Screening Follow-up: Existing condition and New Medication prescribed Thrive Assessment: Date of Thrive Assessment Date Thrive assessed 12/27/24 04/11/25 15:27 Currently or been in a relationship where the following occur: No concerns reported Const General: cooperative, healthy appearing, comfortable and no acute distress Orientation/consciousness: patient oriented x3 HENMT Head: Yes normocephalic Ears: hearing grossly normal bilaterally General nose exam: Normal external nose present Eyes General: appearance normal, both eyes and all related structures Conjunctivae: conjunctivae normal Neck Neck: Yes full ROM and Yes no lymphadenopathy Resp Effort & Inspection: normal respiratory effort Auscultation: clear to auscultation bilaterally, no crackles, no rales, no rhonchi and no wheezes Cardio Rate: regular rate Rhythm: regular rhythm Skin General skin exam: no rashes or lesions noted Neuro General: patient oriented x3 Gait exam (Neuro): Normal gait present Extrem General: Yes normal to inspection, Yes full ROM and No edema Psych Affect: normal affect Attitude: cooperative Insight: Good insight present (Psych) Judgement: Good judgement present (Psych) Coding Level of Care Code Est Pt Level 3 (31934) Diagnoses Anxiety F41.9 Depression F32.A Headache R51.9 Assessment & Plan Assessment & Plan (1) Anxiety: Code(s): F41.9 - Anxiety disorder, unspecified Category: Medical Plan: The patient reports that her current dose of escitalopram is effective in managing her anxiety and depression. The plan is to continue the current dosage of escitalopram, with the contingency to reassess if her headaches persist, at which point an alternative medication may be considered. (2) Depression: Code(s): F32.A - Depression, unspecified Category: Medical Plan: See above (3) Headache: Code(s): R51.9 - Headache, unspecified Category: Medical Plan: The patient's recent onset of more frequent headaches, which began approximately three months after starting escitalopram, are unlikely to be a side effect of the medication. 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 The patient's use of Sudafed for the past three days was noted, with a caution against use beyond three days to prevent rebound headaches. An allergy medication and a nasal spray have been prescribed to help drain the sinuses, with instructions to use them daily for one week. The patient was advised she can use Tylenol or ibuprofen for pain relief. If the headaches do not improve within a week, the plan is to re-evaluate and consider tapering off escitalopram. Plan This note was constructed using voice recognition software. While every effort has been made to ensure accuracy and senior auditor, still areas may have been included sometimes these areas may affect the content or meeting of the given symptoms. Total time spent caring for the patient today was 30 minutes. This includes time spent before the visit reviewing the chart, time spent during the visit, and time spent after the visit and documentation. Patient was informed and verbally consented to the use of an ambient scribe for clinic note documentation during this visit. Medications: New fluticasone propionate 50 mcg/actuation (Flonase Allergy Relief) administer into each nostril 1 spray intranasal DAILY 16 grams 0RF cetirizine (All Day Allergy (cetirizine)) 10 mg PO DAILY 90 tabs 0RF Refilled escitalopram oxalate 5 mg PO DAILY 90 tabs 3RF
--- OUTSIDE RECORDS SUMMARY | 2025-04-11 19:46 | XMS_ITS | Encounter Summary ---
Author Organization [facility] Address [address] [place] [address] Phone Care Team Providers Care Clinical Nursing Assistant Name Role Phone Nikky Stein MD Primary Care Provider [phone] Reason for Visit * Reason Comments Med Refill Encounter Details Date Type Department Care Team (Late st Contact Info) Description 11/09/2020 Refill [place] [place] [facility], [facility] [address] [address] [place] [address] Nikky Stein MD [address] [facility] [address] [place] [address] Menstrual problem Social History Tobacco Use Types Packs/Day Years Used Date Smoking Tobacco: Never Comments:Never Smoker Hunger/Food Answer Date Recorded In the last 12 months, did y ou or your family ever eat less than you felt you should because there wasn't enough money for food? No 08/12/2019 Stable Housing Answer Date Recorded Are you worried that in the next 2 months you may not have stable housing? No 08/12/2019 Transportation Concerns Answer Date Rec orded In the last 12 months, have you or your family ever had to go without healthcare because you didn't have a way to get there? No 08/12/2019 Hazards in Home Answer Date Recorded Think about the place you li ve. Do you have problems with any of the following? Pests (mice or roaches), mold, no/not working smoke detectors, water leaks, no window guards. No 2019 Financing Utilities Answer Date Recorde d In the last 12 months, has t he electric, gas, oil, or water company threatened to shut off your services in your home? No 08/12/2019 Safety at Home Answer Date Recorded Are you or your family worried about feeling saf e in your home? No 08/12/2019 Outside Support Answer Date Recorded Do you feel that you need mo re support from other people or programs to help you care for yourself or your family? No 08/12/2019 Understanding Health Concerns Answer Da te Recorded Do you need help understandi ng your or your child's healthcare needs (diagnosis, medications, plan, etc.)? No 08/12/2019 Financing Health Concerns Answer Date R ecorded In the last 12 months, was t here a time when your child needed to see a doctor or get medications or supplies but could not because of cost? No 08/12/2019 Missing School or Work Answer Date Moy rded Did you or your child miss s chool or work because of a health problem that could have been avoided? No 08/12/2019 Comments Unknown Sex and Gender Information Value Date Recorded Sex Assigned at Not on file Legal Sex Female 5:09 PM EST Gender Identity Female 06/29/2020 3:16 PM EST Sexual Orientation Not on file documented as of this encounter Miscellaneous Notes * Telephone Encounter - Tahira Zamora - 11/09/2020 11:36 AM EDT Med review scheduled * Telephone Encounter - Marilin Morales MD - 11/09/2020 10:59 AM EDT Refill sent for [address] Stein had requested f/u at 3 months. Please schedule. * Telephone Encounter - Monet Jonas MA - 11/09/2020 9:59 AM EDT Last HME was 08/21/2020. PCP is out of the office, sending to covering provider. documented in this encounter Plan of Treatment Not on file documented as of this encounter Visit Diagnoses Diagnosis Menstrual problem documented in this encounter Care Teams Clinical Nursing Assistant Relationship Specialty Start Date End Date Nikky Stein MD [address] [place] [address] [address] [place] [address] PCP - General Pediatrics 07/31/20 03/18/23 documented as of this encounter
--- OUTSIDE RECORDS SUMMARY | 2025-04-11 19:46 | XMS_ITS | Encounter Summary ---
Author Organization [facility] Address [address] [place] [address] Phone Care Team Providers Care Floor Renovator Name Role Phone Nikky Stein MD Primary Care Provider [phone] Reason for Visit * Reason Comments Med Refill Encounter Details Date Type Department Care Team (Late st Contact Info) Description 03/04/2021 Refill [facility], [facility] [address] [address] [place] [address] Nikky Stein MD [address] [facility] [address] [place] [address] Anxiety and depression Social History Tobacco Use Types Packs/Day Years [...] on file documented as of this encounter Plan of Treatment Not on file documented as of this encounter Visit Diagnoses Diagnosis Anxiety and depression documented in this encounter Care Teams Floor Renovator Relationship Specialty Start Date End Date Nikky Stein MD [address] [place] [address] [address] [place] [address] PCP - General Pediatrics 07/31/20 03/18/23 documented as of this encounter
--- OUTSIDE RECORDS SUMMARY | 2025-04-11 19:46 | XMS_ITS | Data Portability ---
Author Organization [facility] Address [address] [place] [id number] Care Team Providers Care Pressing Machine Tender Name Role Phone MARGRET DESAI Primary Care Provider [phone] Assessment No assessment recorded. Plan of Treatment Reminders Order Date Submit Date Provider Last Modified By Organization Details Last Modified Time Details Appointments None recorded. Lab rapid strep group A, throat 2022 023 [facility]2 [facility], [address] [place] [address], [id number], 14:11:15 streptococc us group A, culture, throat [address] [place] [facility], [address] [place] [address], [place], [address], 08:06:57 Referral None recorded. Procedures None recorded. Surgeries None recorded. Imaging None recorded. Medication Orders None recorded. Patient TargetsNo targets recorded. Patient Instructions Encounter Date Encounter Id Patient Instructions Last Modified By Organization Details Last Modified Time 12/04/2022 [id number] sore throat: car e instructions [email or web address] Not available 12/04/2022 14:11:15 Reason for Referral None Reported. Results Created Date Observation Date Name Description Value Unit Range Abnormal Flag Note LastModifiedBy Organization Detail LastModifiedTime 12/05/19 23 12/07/2022 BETA STREP GP A CULTU RE beta strep gp A culture NEGATI VE Refer ence Range : Negat kelvin Not Available [facility] ([facility]) [address] [facility], [place], [address], 12/07/2022 08:06:57 12/05/1912/04/2022 rapid strep group A, throa t Unknown Analyte Normal = Negati ve Not Available [address], [address], 12/04/2022 13:36:38 12/05/19 23 12/04/2022 rapid strep group A, throa t Unknown Analyte negati ve Not Available [address], [address], 12/04/2022 13:36:38 Result Notes None recorded. Problems [...] sex Body mass index (BMI) Body weight Pain severity - 0-10 verbal numeric rating [Score] - Reported Respiratory rate Oxygen saturation Oxygen saturation in Arterial blood by Pulse oximetry Heart rate Body temperature Systolic And Diastolic Provider Name and Address Organization Details Last Updated DateTime 3 161.29 cm 51 % 21.8 kg/m2 96574.0 5 g 6 18 /min 96 % 96 % 123 /min 98.9 [degF] 116/77 mm[Hg] Edilia Kramer PA - [facility] 3 13:39:15 Social History [...] Diagnosis SNOMED-CT Code Diagnosis ICD10 Code Diagnosis IMO Codes Diagnosis Note [id number] [facility] [address] [address] 06/30/2021 17:23:09 06/30/2021 18:52:37 [id number] Ronit Bennett MD [address] [address] 12/04/2022 12:49:11 12/04/2022 14:38:54 Viral pharyngitis [id number] J02.8 Use over the counter medication s [...] Policy Number Policy Mcdonald Covered Member ID Mcdonald Member ID Guarantor Name 12/04/2022 1 [facility] [id number] Shahid Perdue [id number] Shahid Perdue 12/04/2022 1 [facility] DIRECT CONNECTORCARE TYPE I (HMO) [id number] Shahid Perdue [id number] Shahid Perdue Notes Date Note Type Note Provider Name and Address Organization Details Recorded Time 3 text/html Sore throatReported by PatientSore ThroatFor location, patient reportsthroat. For severity, patient reportsmoderate. For quality, patient reportssharpandhurts to swallow. For onset/timing, patient reports2 days. For associated symptoms, patient reportsno cough,no sputum production,no shortness of breath,no wheezing,no sinus pain,no vomiting,no nausea, andno hoarseness. Ronit Bennett MD [address] [place] [address] [place], [address], [place] - [facility] 12/04/2022 18:30:49 OBGyn Episode No OBEpisode recorded.
--- OUTSIDE RECORDS SUMMARY | 2025-04-11 19:46 | XMS_ITS | Encounter Summary ---
Author Organization [facility] Address [address] [place] [address] Phone Care Team Providers Care Applique Cutter Name Role Phone Nikky Stein MD Primary Care Provider [phone] Encounter Details Date Type Department Care Team (Late st Contact Info) Description 05/13/2012 Nurse Only [address] [id number] Social History Tobacco Use Types Packs/Day Years Used Date Smoking Tobacco: Never Assessed Comments Unknown Sex and Gender Information Value Date Recorded Sex Assigned at Not on file Legal Sex Female 5:09 PM EST Gender Identity Female 06/29/2020 3:16 PM EST Sexual Orientation Not on file documented as of this encounter Nursing Notes * UNKNOWN, HISTORICAL - 05/13/2012 5:02 PM EST Shahid Perdue. 2000 NURSE NOTE/VERBAL ORDERS Office/Outpatient Visit Visit Date: Pauline, May 13, 2012 05:02 pm Provider: Addis Cobb RN (Personnel Placement Specialist: Roshan Nation MD; Senior Receptionist: Addis Cobb RN) Location: [facility]. ECTIVE: CC: She is here for the Flu Clinic. Presents with mom HPI: No known chronic health conditions. Fever or illness is not present today. No trouble breathing or hives after eating eggs She has not had a reaction to the flu vaccine or other immunization. Flu vaccine VIS was given today.(interim 12/15/11) There were no questions or concerns voiced at today's visit. OBJECTIVE: Exams: GENERAL APPEARANCE: Alert, active, looks well, mood appropriate RESPIRATORY: Normal respiratory rate and pattern with no distress ASSESSMENT: V04.81 Flu Clinic ORDERS: Procedures Ordered: Influenza virus vaccine, split virus, preservative free, > 3 years, for intramuscular use (In-House) Immunization administration (includes percutaneous, intradermal, subcutaneous or intramuscular injec (In-House) PLAN: Flu Clinic Influenza vaccine > 3 yr (Preservative Free) given No contraindications noted for flu vaccines. Tolerated well, left office in good condition. Orders: Influenza virus vaccine, split virus, preservative free, > 3 years, for intramuscular use (In-House) Immunization administration (includes percutaneous, intradermal, subcutaneous or intramuscular injec (In-House) CHARGE CAPTURE: Primary Diagnosis: V04.81 Flu Clinic Orders: [id number] Influenza virus vaccine, split virus, preservative free, > 3 years, for intramuscular use (In-House) [id number] Immunization administration (includes percutaneous, intradermal, subcutaneous or intramuscular injec (In-House) documented in this encounter Plan of Treatment Not on file documented as of this encounter Visit Diagnoses Not on filedocumented in this encounter Care Teams Applique Cutter Relationship Specialty Start Date End Date Nikky Stein MD [address] [place] [address] [address] [place] [address] PCP - General Pediatrics 07/31/20 03/18/23 documented as of this encounter
--- OUTSIDE RECORDS SUMMARY | 2025-04-11 19:46 | XMS_ITS | Clinical Summary ---
Author Organization [facility] Address [address] [place] [address] Phone Care Team Providers Care [employer] Name Role Phone Unavailable Primary Care Provider Unavailabl e Allergies No known active allergies Medications Flowflex COVID-19 Ag Home Test kit See admin instruction s. 04/18/2022 Active sertraline 25 MG tabletIndication s:Anxiety and depression Take 1 tablet (25 mg total) by mouth daily. 90 tablet 02/02/2023 Active levonorgestrel-e thinyl estradiol (Vienva) 0.1-20 MG-MCG per tabletIndication s:Menstrual problem Take 1 tablet by mouth once daily. 84 tablet 3 02/17/2023 Active Active Problems Problem Noted Date Diagnosed Date Vertigo 01/22/2023 Assessment & Plan (01/22/2023 8:00 PM EDT): Reports intermittent episodes of vertigo and occasional tinnitus, as well as migraine HAs. Presented similarly in 01/2021. Possible Meniere's. Normal hearing today. Will obtain some labwork. Follow-up with PCP when these are back. Asked to keep event diary. Insure adequate hydration, sleep. Instructed to call for new or worsening symptoms, including worsening intensity, vomiting, vision changes, fever, and confusion. Acute non-recurrent pansinusitis 05/02/2022 Overview (05/02/2022): History of nasal congestion/ runny nose for a few days last week associated with slight cough and malaise. No fever nor breathing difficulties. Improved initially, but now has sinus pain and pressure and transient nausea and dizziness. Covid testing has been negative Exam is consistent with sinusitis ( but fairly mild clinical picture) Assessment & Plan (05/02/2022 12:28 PM EST): History of nasal congestion/ runny nose for a few days last week associated with slight cough and malaise. No fever nor breathing difficulties. Improved initially, but now has sinus pain and pressure and transient nausea and dizziness. Covid testing has been negative Exam is consistent with sinusitis ( but fairly mild clinical picture) Complete course of antibiotics as ordered. Consider use of probiotics at end of treatment. Use nasal washes. Consider short course of nasal decongestant ( e.g. Afrin). Use NSAIDs prn pain or fever. Return if not improved in 3-4 days or if worsening, especially if local redness and swelling noted on the face or around the eye Anxiety and depression 08/12/2019 Overview (06/01/2020): Past history of anxiety. May become apprehensive and have slight chest pain and sweating for no reason . This may occur once or twice a week and last for 1 hour. DALIA screening was positive for moderate anxiety. Therapy was recommended, but Shahid was not interested/ ready. Mother now reports more significant problems with anxiety and possible depression. This seems to have worsened with pandemic. She is now willing to talk to someone about it. I will have Jane send screening tools for baseline ( GAD7 and PHQ8)--I think a consult with Mona is reasonable--with a decision about longer term therapy or medication treatment. Assessment & Plan (05/20/2022 2:19 PM EST): Her screens are slightly abnormal but Shahid feels she is doing quite well. Plan to continue her current dose and she will continue to meet with school based counselors as needed. Regroup in 6 months or prn Assessment & Plan (02/11/2022 12:58 PM EDT): She is doing well on Sertraline 25mg. Encouraged to continue this and reseek counseling services at [facility]. Regroup in 6 months or sooner prn Assessment & Plan (11/27/2020 2:13 PM EDT): She is much improved on Sertraline 25mg daily. Plan to continue this dose. Regroup in 4 months after transition to college. I have encouraged her to connect with counseling department at [facility]. Followup sooner prn Assessment & Plan (10/16/2020 10:20 AM EDT): She feels she is doing much better on the Sertraline. Has a little bit if stomach upset but totally manageable. She would like to continue at this dose. She is planning to connect with a provider at [facility] where she will attend next year. I will have [facility] push repeat screening forms to complete for todays vist. Followup in 6 months Assessment & Plan (09/17/2020 4:07 PM EDT): Discussion with both Shahid and her mother. I am in support of starting medication but recommend she continue to think about working with a provider. Recommend Sertraline. Will begin at 12.5mg daily for 1 week and increase to 25mg daily after that. [facility] will reach out to the family. Reviewed possible side effects. Followup in 1 week or sooner prn Assessment & Plan (08/21/2020 3:15 PM EST): Reviewed at length. She is struggling. She denies suicidal thoughts or actions. Met with [facility] today to find other options for support. Her family would like her to hold off on medication. Reviewed that we should regroup after a few therapy sessions to see how she is doing Assessment & Plan (08/12/2019 5:11 PM EST): History of anxiety. May become apprehensive and have slight chest pain and sweating for no reason . This may occur once or twice a week and last for 1 hour. DALIA screening was positive for moderate anxiety. Therapy is reasonable. [facility] will assist in finding resources. Menstrual problem 08/06/2018 Overview (08/12/2019): Irregular menses and some increased pain which has returned since OBCPs discontinued. Previously referred to Manager [facility] for consideration of alternative control/ dysmenorrhea treatments but this was not pursued. Re-referral is an option if desired. Assessment & Plan (02/11/2022 12:58 PM EDT): She is doing well on OCPs. Continue this and recommended use of condoms always Assessment & Plan (08/21/2020 3:16 PM EST): Recommend trial of low dose estrogen OCPs. Recommend taking it at night. Followup in 3 months/ Start Thursday after her next period Assessment & Plan (08/12/2019 5:13 PM EST): Irregular menses and some increased pain which has returned since OBCPs discontinued. Previously referred to [facility] for consideration of alternative control/ dysmenorrhea treatments but this was not pursued. Re-referral is an option if desired. Assessment & Plan (08/06/2018 5:40 PM EST): Irregular menses which is poorly tolerated by patient. She trialed OCPs last year, though stopped due to nausea. Discussed [employer] referral to consider implant as next option. Pt and parent agreeable. Referral placed, mom to schedule. Resolved Problems Problem Noted Date Diagnosed Date Resolved Date Blepharitis of upper and low er eyelids of both eyes 04/10/2021 02/11/2022 Overview (04/10/2021): History of erythema medially associated with crusted drainage of upper and lower lids of both eyes for 2 weeks. No pain nor purulent discharge, although some itching described. No scleral redness. No history of allergy. Exam is difficult ( virtually), but suggests blepharitis. Will treat with topical antibiotic for 7 days, then regroup. If not resolved, may need OV or treatment for allergic conjunctivitis Assessment & Plan (04/10/2021 3:40 PM EDT): History of erythema medially associated with crusted drainage of upper and lower lids of both eyes for 2 weeks. No pain nor purulent discharge, although some itching described. No scleral redness. No history of allergy. Exam is difficult ( virtually), but suggests blepharitis. Will treat with topical antibiotic for 7 days, then regroup. If not resolved, may need OV or treatment for allergic conjunctivitis Dizziness 01/30/2021 02/11/2022 Overview (01/30/2021): History of dizziness ( and nausea) for the last 2 days--although worse today. Not ill; no recent fever nor congestion. No ear pain, but subjective hearing loss reported. Dizziness is noted with sudden head movements ( especially at work). Clinical picture suggests vertigo ( possibly related to middle or inner ear disease--otolith?) Will treat clinically--if symptoms persist or worsen will need OV ( +/- referral to ENT) Assessment & Plan (01/30/2021 5:50 PM EDT): History of dizziness ( and nausea) for the last 2 days--although worse today. Not ill; no recent fever nor congestion. No ear pain, but subjective hearing loss reported. Dizziness is noted with sudden head movements ( especially at work). Clinical picture suggests vertigo ( possibly related to middle or inner ear disease--otolith?) Will treat clinically--if symptoms persist or worsen will need OV ( +/- referral to ENT) Earache on left 10/19/2020 02/11/2022 Overview (10/19/2020): History of ear pain for 2-3 days on the left. No prodromal illness; no fever, congestion nor sore throat. No hearing loss. Pain is localized to opening of ear canal. Palpation causes pain. Areas feels like a scab ; but nothing abnormal visually. No history of trauma. Suspect otitis externa clinically. Assessment & Plan (10/19/2020 2:04 PM EDT): History of ear pain for 2-3 days on the left. No prodromal illness; no fever, congestion nor sore throat. No hearing loss. Pain is localized to opening of ear canal. Palpation causes pain. Areas feels like a scab ; but nothing abnormal visually. No history of trauma. Suspect otitis externa clinically. Use ear drops as directed. Warm compresses may be helpful for comfort. May use Ibuprofen if needed for pain. Return if not improved in 2-3 days or if the pain becomes severe or if fever or if you become very sick. Acute pain of left knee 08/12/2019/0 02/2021 Overview (08/12/2019): History of knee pain with exertion. Seen by agency trainer and taped for suspected knee strain. No specific trauma. Pain is localized to patellar tendon on the left. No swelling nor instability. Assessment & Plan (08/12/2019 5:09 PM EST): History of knee pain with exertion. Seen by agency trainer and taped for suspected knee strain. No specific trauma. Pain is localized to patellar tendon on the left. No swelling nor instability. Overuse syndrome suspected ( strain v patellar tendinitis) Discussed overuse syndromes. Avoid re-injury. NSAIDs prn. Rest if needed, activity as tolerated. Follow exercise program. Influenza vaccination declined 08/12/2019 01/30/2021 Concussion without loss of consciousness 04/16/2018 08/06/2018 Overview (04/16/2018): History of head injury on 04/08 during soccer. Seen by agency trainer with initially normal sideline testing, but then noted persistent headache which resulted in diagnosis of concussion. Mixed stress and urge urinary incontinence 04/16/2018 08/12/2019 Overview (08/12/2019): Long standing history of incontinence-- sometimes with coughing or laughing-- but may have dribbling spontaneously. No dysuria, although does describe urgency ( has to get to the bathroom immediately when feels need to void) Now seeing Urology and symptoms are significantly improved. Not taking medication. Assessment & Plan (08/12/2019 5:15 PM EST): Long standing history of incontinence-- sometimes with coughing or laughing-- but may have dribbling spontaneously. No dysuria, although does describe urgency ( has to get to the bathroom immediately when feels need to void) Now seeing Urology and symptoms are significantly improved. Not taking medication. Assessment & Plan (08/06/2018 5:29 PM EST): Awaiting Urology consult. Scheduled for September. Assessment & Plan (04/16/2018 5:38 PM EDT): Long standing history of incontinence-- sometimes with coughing or laughing-- but may have dribbling spontaneously. No dysuria, although does describe urgency ( has to get to the bathroom immediately when feels need to void) Dribbling is less common complaint for Pediatrics-- will refer to Urology for assessment and treatment. Acute right ankle pain 06/28/201608/06 Assessment & Plan (07/10/2017 12:25 PM EST): Rest; avoid re-injury; compression ( mal wrap provided); apply ice or cool packs up to QID for a few days following injury. Read handout on care. Refer to PT if needed. Continue to work with school agency trainer. Follow-up if not improved in 5-7 days Migraine without aura 06/22/20152019 Overview (08/12/2019): History of migraine headaches which have improved clinically-- no aura reported-- no significant headaches nor need for specific treatment in the last year. Assessment & Plan (08/12/2019 5:14 PM EST): History of migraine headaches which have improved clinically-- no aura reported-- no significant headaches nor need for specific treatment in the last year. Follow clinically. Continue present management. Migraines may be resolved. Monitor for recurrence. Assessment & Plan (08/06/2018 5:29 PM EST): Denies current concerns, rarely has headaches now. Assessment & Plan (07/10/2017 12:28 PM EST): Generally much improved, now rare headaches which are less severe. Shahid feels that stress at previous school played a major role. Screening testing does show some issues with mood ( not a problem per Shahid)-- mother feels that anger concerns have gotten better. Discussed referral to a therapist if desired or if symptoms become more bothersome. Follow clinically. Recheck prn. Assessment & Plan (12/12/2016 1:07 PM EDT): Generally doing better. No recent episodes of migraine. No meds needed in several months. Continue to monitor. Immunizations Immunization Administration Dates Next Due DTaP 5 10/08/2006, 4,04/03/2003,01/31,2002 H1N1 Inj 03/30/2009 HPV Vaccine 9 Valent 05/25/2020,07/10/2017,06/27 Hep A, Adult 02/11/2022 Hep A, ped/adol 08/21/2020 Hep B, ped/adol 07/03/2003,2002,2002 Hib (HbOC) 01/05/2004, 3,01/31/2003,12/06 IPV 10/08/2006, 4,01/31/2003,12/06 Influenza Split 03/30/2009,03/24/2008 Influenza, injectable, quadr ivalent, preservative free 02/11/2022,06/27/2016 Influenza, injectable, triva lent, preservative free 05/13/2012,05/03/2010 Influenza, intranasal, trivalent 06/22/2015 MMR 01/05/2004 MMRV 10/08/2006 Meningococcal Conj (Menactra) MCV4P 08/12/2019 Pneumococcal Conjugate 04/03/2003,01/31/2003, Tdap 06/22/2015 Varicella 10/06/2003 Social History Tobacco Use Types Packs/Day Years Used Date Smoking Tobacco: Never Comments:Never Smoker Hunger/Food Answer Date Recorded In the last 12 months, did y ou or your family ever eat less than you felt you should because there wasn't enough money for food? No 02/10/2022 Stable Housing Answer Date Recorded Are you worried that in the next 2 months you may not have stable housing? No 02/10/2022 Transportation Concerns Answer Date Rec orded In the last 12 months, have you or your family ever had to go without healthcare because you didn't have a way to get there? No 02/10/2022 Hazards in Home Answer Date Recorded Think about the place you li ve. Do you have problems with any of the following? Pests (mice or roaches), mold, no/not working smoke detectors, water leaks, no window guards. No 2021 Financing Utilities Answer Date Recorde d In the last 12 months, has t he electric, gas, oil, or water company threatened to shut off your services in your home? No 02/10/2022 Safety at Home Answer Date Recorded Are you or your family worried about feeling saf e in your home? No 02/10/2022 Outside Support Answer Date Recorded Do you feel that you need mo re support from other people or programs to help you care for yourself or your family? No 02/10/2022 Understanding Health Concerns Answer Da te Recorded Do you need help understandi ng your or your child's healthcare needs (diagnosis, medications, plan, etc.)? No 02/10/2022 Financing Health Concerns Answer Date R ecorded In the last 12 months, was t here a time when your child needed to see a doctor or get medications or supplies but could not because of cost? No 02/10/2022 Missing School or Work Answer Date Moy rded Did you or your child miss s chool or work because of a health problem that could have been avoided? No 02/10/2022 Comments No Sex and Gender Information Value Date Recorded Sex Assigned at Not on file Legal Sex Female 5:09 PM EST Gender Identity Female 06/29/2020 3:16 PM EST Sexual Orientation Not on file Last Filed Vital Signs Vital Sign Reading Time Taken Comments Blood Pressure 112/68 01/22/2023 1:41 PM EDT Pulse 109 01/22/2023 1:41 PM EDT Temperature 36.7 C (98 F) 01/22/2023 1:41 PM EDT Respiratory Rate 18 07/25/2019 1:56 PM EST Oxygen Saturation 98% 05/02/2022 11:48 AM EST Inhaled Oxygen Concentration - - Weight 62.2 kg (137 lb 2 oz) 01/22/2023 1:41 PM EDT Height 163 cm (5' 4.17 ) 02/11/2022 11:23 AM EDT Body Mass Index 23.41 02/11/2022 11:23 AM EDT Plan of Treatment Health Maintenance Due Date Last Done Comments Men B Vaccine (1 of 2 - Standard) 2018 Influenza Vaccines (#1) 2025 03/07/20, 02/11/2022, 06/27/2016, Additional history exists COVID-19 Vaccine ( - season) 2025 06/21/2021, 10/15/2020, 09/23/2020 DTaP,Tdap,and Td Vaccines (7 - Td or Tdap) 06/22/2025 06/22/2015, 10/08/2006, 04/12/2004, Additional history exists Pneumococcal Vaccine Aged Out 04/03/2003, 01/31/2003, 2002 No longer eligible based on patient's age to complete this topic Hepatitis B Vaccines Completed 07/03/2003, 2002, 2002 HIB Vaccines Completed 01/05/2004, 03/16, 01/31/2003, Additional history exists IPV Vaccines Completed 10/08/2006, 09/14, 01/31/2003, Additional history exists MMR Vaccines Completed 10/08/2006, 01/05/2004 Varicella Vaccines Completed 10/08/2006, 10/06/2003 Meningococcal Vaccine Completed 08/12/2019 HPV Vaccines Completed 05/25/2020, 06/16, 06/27/2016 Hepatitis A Vaccines Completed 02/11/2022, 08/22/19 21 Procedures * Due to [place] SiOx law, this organization might not be sharing sensitive test results. Procedure Name Priority Date/Time Associated Diagnosis Comments CHLAMYDIA GC AMP PROBE Routine 02/12/2022 12:40 AM EDT Encounter for screening examination for sexually transmitted disease from Last 3 Months or Most Recently Relevant to Health Maintenance Results * Due to [place] SiOx law, this organization might not be sharing sensitive test results. * Chlamydia and Gonorrhoea, Amplified (Vagina) (02/12/2022 12:40 AM EDT) Chlamydia Trachomatis, Amplified NEGATIVE (NEG) [facility] Comment: No Chlamydia Trachomatis RNA detected in this patient's sample (REFERENCE RANGE/NORMAL VALUE: NOT DETECTED) Note: This test uses ethylbenzene converter operator- mediated amplification method to detect rRNA from C. Trachomatis N.GONORRHOEAE AMP PROBE NEGATIVE (NEG) [facility] Comment: No Neisseria Gonorrhoeae RNA detected in this patient's sample (REFERENCE RANGE/NORMAL VALUE: NOT DETECTED) NOTE: This test uses ethylbenzene converter operator-mediated amplification method to detect rRNA from N.Gonorrhoeae. A negative result does not preclude infection. In the case of a negative urine result, testing of an endocervical(female) or urethral (male) specimen is recommended if there is high clinical suspicion of infection. Due to very high sensitivity of Nucleic Acid Amplification Test, false positive results may occur. Therefore, specimen handling is extremely important. In patients in whom the disease is unlikely, additional sample for testing should be considered after an initial positive result. The performance characteristics of this test have not been evaluated in children. The Aptima Combo2 assay is not intended for the evaluation of suspected sexual abuse or for other medico-legal indications. The ordering provider should assess if the patient had consensual sex without risk of sexual abuse. Consult the [facility] if needed. Contact phone number . Therapeutic failure or success cannot be determined with the Aptima Combo2 assay since nucleic acid may persist following appropriate antimicrobial therapy. The Centers for Disease Control and Prevention (CDC) recommends confirmatory retesting using culture or a different nucleic acid amplification test when positive results occur, if indicated. CHLAM/GC AMP PROBE SPEC TYPE VAGINAL SPECIMEN [facility] Comment: Testing performed or reported by [facility], a Service of [facility], [address] [place] [id number] Arden Dominguez MD, Subassembler [facility]# [id number] Swab (Vagina) 02/12/2022 12: 40 AM EDT 02/12/2022 1:28 AM EDT us Nikky Stein MD LAB MICROBIOLOGY - GENERAL ORD ERABLES Final Result [facility] from Last 3 Months or Most Recently Relevant to Health Maintenance
--- OUTSIDE RECORDS SUMMARY | 2025-04-11 19:46 | XMS_ITS | Encounter Summary ---
Author Organization [facility] Address [address] [place] [id number] Phone Care Team Providers Care Chore Worker Name Role Phone Nikky Stein MD Primary Care Provider [phone] Reason for Visit * Reason Comments Med Refill Encounter Details Date Type Department Care Team (Late st Contact Info) Description 06/04/2021 Refill [facility], [facility] [address] [address] [place] [address] Nikky Stein MD [address] [facility] [address] [place] [address] Menstrual problem Social History Tobacco Use Types [...] encounter Miscellaneous Notes * Telephone Encounter - Marilin Morales MD - 06/05/2021 8:51 AM EST Previous refill was sent to [facility]. New rx sent. * Telephone Encounter - Kristin Sharma MA - 06/05/2021 8:47 AM EST Filled on 05/23/21. To covering provider for review. documented in this encounter Plan of Treatment Not on file documented as of this encounter Visit Diagnoses Diagnosis Menstrual problem documented in this encounter Care Teams Chore Worker Relationship Specialty Start Date End Date Nikky Stein MD [address] [place] [address] [address] [place] [address] PCP - General Pediatrics 07/31/20 03/18/23 documented as of this encounter
--- OUTSIDE RECORDS SUMMARY | 2025-04-11 19:46 | XMS_ITS | Encounter Summary ---
Author Organization [facility] Address [address] [place] [id number] Phone Care Team Providers Care Spinning Room Worker Name Role Phone Nikky Stein MD Primary Care Provider [phone] Encounter Details Date Type Department Care Team (Late st Contact Info) Description 05/03/2010 Nurse Only [address] [address] Social History Tobacco Use Types Packs/Day Years [...] 2010 04:08 pm Provider: Kathy Marshall LPN (Morning Babysitter: Penny Parr MD) Location: [facility]. ECTIVE: CC: She is [...] CAPTURE: Primary Diagnosis: [id number] Flu Clinic Orders: [id number] Influenza virus vaccine, split virus, preservative free, > 3 years, for intramuscular use [id number] Immunization administration (includes percutaneous, intradermal, subcutaneous or intramuscular injec documented in this encounter Plan of Treatment Not on file documented as of this encounter Visit Diagnoses Not on filedocumented in this encounter Care Teams Spinning Room Worker Relationship Specialty Start Date End Date Nikky Stein MD [address] [place] [address] PCP - General Pediatrics 07/31/20 03/18/23 documented as of this encounter
== END 2025-04-11 16:05 | disposition home or self-care (01) ==
LOC: HO.HMCH 15:22
DX: F41.9 Anxiety disorder, unspecified (principal); F32.A Depression, unspecified; R51.9 Headache, unspecified

== ENCOUNTER → 2025-04-11 15:21 | Outpatient (BNVA) | payer OTHER, SELFPAY | DX: F41.9 Anxiety disorder, unspecified (principal); F32.A Depression, unspecified; R51.9 Headache, unspecified | CPT/HCPCS: 99212 ==